=== PATIENT | male | born 1985 | race African-American/Black ===

== ENCOUNTER 2016-07-18 17:39 | Emergency (ER) | payer MEDICAID ==
[~2016-07-18] VITALS: Ht 180.3 cm; Wt 69.0 kg
[2016-07-18] MEDS ORDERED: IBUPROFEN 600MG TABLET PO ONE (18:30)
[2016-07-18 19:35] VITALS: BP 125/83
== END 2016-07-18 19:40 | disposition home or self-care (01) ==
LOC: ER 17:54
DX: S60.221A Contusion of right hand, initial encounter (principal); S60.222A Contusion of left hand, initial encounter; F17.210 Nicotine dependence, cigarettes, uncomplicated; F12.10 Cannabis abuse, uncomplicated; Z88.0 Allergy status to penicillin; Y04.0XXA Assault by unarmed brawl or fight, initial encounter; Y93.89 Activity, other specified; Y92.89 Other specified places as the place of occurrence of the external cause; Y99.8 Other external cause status
CPT/HCPCS: 73130; 99284